=== PATIENT | female | born 1935 | race Two or more races ===

== ENCOUNTER 2021-07-02 11:04 | Inpatient (IN) | payer MEDICARE, MEDICAID ==
[~2021-07-02] VITALS: Ht 167.6 cm; Wt 71.5 kg
[2021-07-02] MEDS ORDERED: SODIUM CHLORIDE 0.9% 2,000 ML IV ONE (12:00)
[2021-07-02] MEDS: OXYGEN THERAPY IH SCH ×2 (12:51→19:52)
[2021-07-02 13:19] LABS: ABG A-A DIFF O2 571.1 mmHg (10-20.0); ABG CARBOXYHEMOGLOBIN 0.1 % (0.0-1.5); ABG HCO3 20.4 mmol/L (22.0-26.0); ABG METHEMOGLOBIN 0.3 % (0.0-1.5); ABG OXYGEN CONTENT 17.3 mL/dL (15.0-23.0); ABG OXYGEN SATURATION 96.1 % (95.0-98.0); ABG OXYHEMOGLOBIN 95.7 % (94.0-100.0); ABG PCO2 34 mmHg (35-45); ABG PH 7.375 (7.35-7.450); ABG TOTAL HEMOGLOBIN 12.8 G/dL (12.0-18.0); PO2, ARTERIAL BG 103.2 mmHg (71.0-79.0); SOURCE, BLOOD GAS ARTERIAL
[2021-07-02 13:20] LABS: O2 DEVICE,BLOOD GAS NON REBREATHER (ROOM AIR); SITE, BLOOD GAS LFT BRACHIAL
[2021-07-02 13:24] LABS: BASOPHILS % (AUTO) 0.9 % (0.0-2.0); EOSINOPHILS % (AUTO) 0 % (1.0-6.0); MEAN CORPUSCULAR HGB CONC 30.7 G/dL (31.0-37.0)
[2021-07-02 13:28] LABS: HEMATOCRIT 48.3 % (36-46); HEMOGLOBIN 14.8 g/dL (12.0-16.0); LYMPHOCYTES # (AUTO) 1.9 K/uL (1.0-4.8); LYMPHOCYTES % (AUTO) 7.7 % (22.0-44.0); MEAN CORPUSCULAR HEMOGLOBIN 29.2 pg (26.0-34.0); MEAN CORPUSCULAR VOLUME 95 fL (80-100); MONOCYTES # (AUTO) 1.5 K/uL (0.1-1.0); MONOCYTES % (AUTO) 5.8 % (2.0-9.0); NEUTROPHILS # (AUTO) 21.5 K/uL (1.8-7.7); PLATELET COUNT (AUTO) 319 K/uL (150-450); RED BLOOD CELL COUNT(AUTO) 5.08 MIL/uL (4.00-5.20); RED CELL DISTRIBUTION WIDTH 14.9 % (11.5-14.5)
[2021-07-02 13:29] LABS: NEUTROPHILS % (AUTO) 85.6 % (40.0-70.0)
[2021-07-02 13:37] LABS: COVID AG,FIA SOURCE NASOPHARYNGEAL
[2021-07-02 13:46] LABS: ALANINE AMINOTRANSFERASE 34 U/L (12-78); ALBUMIN 3.3 g/dL (3.4-5.0); ALKALINE PHOSPHATASE 77 U/L (46-116); ANION GAP 20 mmol/L (8-16); ASPARTATE AMINOTRANSFERASE 26 U/L (15-37); BILIRUBIN,TOTAL 0.6 mg/dL (0.1-1.0); CALCIUM, TOTAL 11.3 mg/dL (8.8-10.5); CARBON DIOXIDE 25 mmol/L (22-29); CHLORIDE 138 mmol/L (98-107); CREATINE KINASE, TOTAL ONLY 161 U/L (26-192); CREATININE 6.86 mg/dL (0.60-1.30); GLOMERULAR FILTR. RATE CALC 6 mL/min (>60); GLUCOSE,RANDOM 172 mg/dL (70-110); LIPASE 346 U/L (73-393); POTASSIUM 5.3 mmol/L (3.5-5.1)
[2021-07-02 13:51] LABS: SODIUM SERUM 183 mmol/L (136-145); UREA NITROGEN, BLOOD 213 mg/dL (7-18)
[2021-07-02] MEDS ORDERED: PIPERACILLIN/TAZO 3.375 GM/D5W 50 ML IV ONE (14:35)
[2021-07-02] MEDS ORDERED: 0.9% SODIUM CHLORIDE 10 ML SYRINGE IVP PRN (14:45)
[2021-07-02] MEDS ORDERED: ONDANSETRON HCL 4 MG/2 ML VIAL IVP PRN ×2 (14:45→21:00)
[2021-07-02] MEDS ORDERED: ACETAMINOPHEN 1000 MG/ISO-OSM 100 ML IV ONE (15:15)
[2021-07-02 15:16] LABS: APPEARANCE,URINE TURBID (CLEAR); BILIRUBIN,URINE NEGATIVE (NEGATIVE); GLUCOSE, URINE (UA) NEGATIVE (NEGATIVE); KETONES,URINE NEGATIVE (NEGATIVE); LEUKOCYTE ESTERASE ,URINE SMALL (NEGATIVE); NITRATE,URINE NEGATIVE (NEGATIVE); OCCULT BLOOD,URINE MODERATE (NEGATIVE); PROTEIN,URINE NEGATIVE (NEGATIVE); UROBILINOGEN,URINE 0.2 mg/dL (<=1.0)
[2021-07-02 15:34] LABS: AMORPHOUS SEDIMENT,UR Many /LPF (None Seen); BACTERIA,URINE Few /HPF (None Seen); RBC,URINE 0-2 /HPF (0-2); SQUAMOUS EPITHELIAL CELL,UR Few /LPF (None Seen)
[2021-07-02] MEDS ORDERED: LIDOCAINE 1% 10 ML VIAL SQ ONE (15:45)
[2021-07-02] MEDS ORDERED: CLINDAMYCIN 600 MG/D5% WATER 50 ML IV ONE (16:45)
[2021-07-02] MEDS ORDERED: DEXTROSE 5%-0.45% SODIUM CHL 1,000 ML IV ONE (16:45)
[2021-07-02 17:38] LABS: DIGOXIN < 0.20 ng/mL (0.90-2.00)
[2021-07-02 17:44] LABS: LACTIC ACID 2.4 mmol/L (0.4-2.0)
[2021-07-02] MEDS ORDERED: PHENYLEPHRINE 200 MG/D5%-WATER 250 ML IV PRN (17:45)
[2021-07-02 18:03] LABS: ABG METHEMOGLOBIN 0.3 % (0.0-1.5); SOURCE, BLOOD GAS ARTERIAL
[2021-07-02 19:17] LABS: ABG A-A DIFF O2 103.3 mmHg (10-20.0); ABG BASE EXCESS -10.2 mmol/L (-2.0-3.0); ABG CARBOXYHEMOGLOBIN 0.5 % (0.0-1.5); ABG OXYGEN CONTENT 15.1 mL/dL (15.0-23.0); ABG OXYGEN SATURATION 90.2 % (95.0-98.0); ABG OXYHEMOGLOBIN 89.5 % (94.0-100.0); ABG PCO2 32 mmHg (35-45); ABG PH 7.321 (7.35-7.450); PO2, ARTERIAL BG 59.9 mmHg (71.0-79.0); TEMPERATURE, FAHRENHEIT, BG 96.7 FAHREN (96.0-98.6)
[2021-07-02 19:19] LABS: O2 DEVICE,BLOOD GAS NASAL CANNULA (ROOM AIR); SITE, BLOOD GAS LFT BRACHIAL
[2021-07-02] MEDS ORDERED: VANCOMYCIN HCL 1 GM/D5% WATER 200 ML IV ONE (21:00)
[2021-07-02] MEDS ORDERED: ALBUTEROL SULFATE 2.5 MG/0.5 ML NEB SOLUTION NEB PRN (21:00)
[2021-07-02] MEDS ORDERED: ACETAMINOPHEN 325 MG TABLET PO PRN (21:00)
[2021-07-02] MEDS ORDERED: HYDROCODONE/ACETAMINOPHEN 5-325 MG TABLET PO PRN (21:00)
[2021-07-02] MEDS ORDERED: BISACODYL 10 MG RECTAL RECTAL SUPPOSITORY PR PRN (21:00)
[2021-07-02] MEDS ORDERED: MAGNESIUM HYDROXIDE SUSPENSION 30 ML UDCUP PO PRN (21:00)
[2021-07-02] MEDS ORDERED: IPRATROPIUM BROMIDE 0.5 MG/2.5 ML NEB SOLUTION NEB PRN (21:00)
[2021-07-02] MEDS ORDERED: ZOLPIDEM TARTRATE 5 MG TABLET PO PRN (21:00)
[2021-07-02] MEDS ORDERED: RINGERS SOLUTION,LACTATED 1,000 ML IV ONE (21:11)
[2021-07-02 21:27] LABS: BASOPHILS % (AUTO) 0.8 % (0.0-2.0); EOSINOPHILS % (AUTO) 0.1 % (1.0-6.0); HEMATOCRIT 36.2 % (36-46); HEMOGLOBIN 10.9 g/dL (12.0-16.0); LYMPHOCYTES # (AUTO) 2.2 K/uL (1.0-4.8); MEAN CORPUSCULAR HEMOGLOBIN 29.5 pg (26.0-34.0); MEAN CORPUSCULAR HGB CONC 30.2 G/dL (31.0-37.0); MEAN CORPUSCULAR VOLUME 98 fL (80-100); MONOCYTES % (AUTO) 4.9 % (2.0-9.0); NEUTROPHILS # (AUTO) 16.6 K/uL (1.8-7.7); NEUTROPHILS % (AUTO) 83.2 % (40.0-70.0); PLATELET COUNT (AUTO) 219 K/uL (150-450); RED BLOOD CELL COUNT(AUTO) 3.71 MIL/uL (4.00-5.20)
[2021-07-02] MEDS ORDERED: VANCOMYCIN HCL 1.25 GM in DEXTROSE 5%-WATER 250 ML IV ONE (22:00)
[2021-07-02] MEDS ORDERED: PANTOPRAZOLE SODIUM 40 MG/VIAL IVP ONE (22:00)
[2021-07-02] MEDS ORDERED: VANCOMYCIN HCL 1 GM/D5% WATER 200 ML IV PRN (22:00)
[2021-07-02 22:01] LABS: BILIRUBIN,TOTAL 0.6 mg/dL (0.1-1.0); CALCIUM, TOTAL 8.2 mg/dL (8.8-10.5); CREATININE 5.42 mg/dL (0.60-1.30); POTASSIUM 3.7 mmol/L (3.5-5.1); THYROID STIMULATING HORMONE 1.62 uIU/mL (0.36-3.74); TOTAL PROTEIN, SERUM 5.9 g/dL (6.4-8.2)
[2021-07-02] MEDS: PANTOPRAZOLE SODIUM 80 MG in SODIUM CHLORIDE 0.9% 100 ML IV SCH (22:14)
[2021-07-03] MEDS: PIPERACILLIN SODIUM/TAZOBACTAM 2.25 GM in DEXTROSE 5%-WATER 50 ML IV SCH ×3 (04:10→19:43)
[2021-07-03 04:24] LABS: ALBUMIN 2.1 g/dL (3.4-5.0); BILIRUBIN,TOTAL 0.6 mg/dL (0.1-1.0); CALCIUM, TOTAL 8.1 mg/dL (8.8-10.5); CREATININE 5.22 mg/dL (0.60-1.30); POTASSIUM 3.3 mmol/L (3.5-5.1); TOTAL PROTEIN, SERUM 6.2 g/dL (6.4-8.2)
[2021-07-03] MEDS: PANTOPRAZOLE SODIUM 80 MG in SODIUM CHLORIDE 0.9% 100 ML IV SCH ×2 (06:48→16:10)
[2021-07-03 06:52] LABS: BASOPHILS % (AUTO) 0.4 % (0.0-2.0); EOSINOPHILS % (AUTO) 0.1 % (1.0-6.0); HEMATOCRIT 36.3 % (36-46); HEMOGLOBIN 11.1 g/dL (12.0-16.0); LYMPHOCYTES # (AUTO) 1.4 K/uL (1.0-4.8); LYMPHOCYTES % (AUTO) 6.4 % (22.0-44.0); MEAN CORPUSCULAR HEMOGLOBIN 29.2 pg (26.0-34.0); MEAN CORPUSCULAR HGB CONC 30.5 G/dL (31.0-37.0); MEAN CORPUSCULAR VOLUME 96 fL (80-100); MONOCYTES # (AUTO) 1.1 K/uL (0.1-1.0); MONOCYTES % (AUTO) 5.1 % (2.0-9.0); NEUTROPHILS # (AUTO) 19.5 K/uL (1.8-7.7); PLATELET COUNT (AUTO) 234 K/uL (150-450); RED BLOOD CELL COUNT(AUTO) 3.79 MIL/uL (4.00-5.20); RED CELL DISTRIBUTION WIDTH 15.1 % (11.5-14.5)
[2021-07-03 07:04] LABS: ALBUMIN 2.2 g/dL (3.4-5.0); BILIRUBIN,TOTAL 0.7 mg/dL (0.1-1.0); CREATININE 4.95 mg/dL (0.60-1.30); TOTAL PROTEIN, SERUM 6.1 g/dL (6.4-8.2)
[2021-07-03] MEDS: DEXTROSE 5%-WATER 1,000 ML IV SCH (08:48)
[2021-07-03] MEDS ORDERED: PROPOFOL 1% 20 ML VIAL IVP ONE (12:00)
[2021-07-03 13:10] LABS: HEMATOCRIT 41.4 % (36-46); HEMOGLOBIN 12.5 g/dL (12.0-16.0)
[2021-07-03] MEDS ORDERED: *CLINICAL-CEFEPIME DOSING CLINICAL ONE (13:30)
[2021-07-03] MEDS ORDERED: CEFEPIME HCL 1 GM in DEXTROSE 5%-WATER 50 ML IV ONE (14:00)
[2021-07-03 17:03] LABS: CALCIUM, TOTAL 8.4 mg/dL (8.8-10.5); CREATININE 4.71 mg/dL (0.60-1.30); MAGNESIUM 2.7 mg/dL (1.80-2.40); PHOSPHORUS 3.8 mg/dL (2.5-4.9); POTASSIUM 3.1 mmol/L (3.5-5.1)
[2021-07-03 18:58] LABS: HEMATOCRIT 36.6 % (36-46); HEMOGLOBIN 11.2 g/dL (12.0-16.0)
[2021-07-03] MEDS: MORPHINE SULFATE 2 MG/ML SYRINGE IVP PRN (21:47)
[2021-07-04 01:23] LABS: HEMATOCRIT 35.2 % (36-46); HEMOGLOBIN 10.8 g/dL (12.0-16.0)
[2021-07-04] MEDS: PANTOPRAZOLE SODIUM 80 MG in SODIUM CHLORIDE 0.9% 100 ML IV SCH ×3 (02:20→22:59)
[2021-07-04] MEDS: MORPHINE SULFATE 2 MG/ML SYRINGE IVP PRN ×2 (02:31→05:55)
[2021-07-04] MEDS: PIPERACILLIN SODIUM/TAZOBACTAM 2.25 GM in DEXTROSE 5%-WATER 50 ML IV SCH ×3 (03:12→21:31)
[2021-07-04] MEDS: DEXTROSE 5%-WATER 1,000 ML IV SCH ×2 (04:26→20:42)
[2021-07-04 07:36] LABS: HEMATOCRIT 30.7 % (36-46); HEMOGLOBIN 9.7 g/dL (12.0-16.0); MEAN CORPUSCULAR HEMOGLOBIN 29.8 pg (26.0-34.0); MEAN CORPUSCULAR HGB CONC 31.4 G/dL (31.0-37.0); MEAN CORPUSCULAR VOLUME 95 fL (80-100); PLATELET COUNT (AUTO) 135 K/uL (150-450); RED BLOOD CELL COUNT(AUTO) 3.24 MIL/uL (4.00-5.20)
[2021-07-04 07:49] LABS: ALBUMIN 1.8 g/dL (3.4-5.0); BILIRUBIN,TOTAL 0.6 mg/dL (0.1-1.0); CALCIUM, TOTAL 8.2 mg/dL (8.8-10.5); CREATININE 4.57 mg/dL (0.60-1.30); TOTAL PROTEIN, SERUM 6.1 g/dL (6.4-8.2); VANCOMYCIN,RANDOM 11.8 mcg/mL (25.0-50.0)
[2021-07-04 08:11] LABS: POTASSIUM 2.8 mmol/L (3.5-5.1)
[2021-07-04 08:58] LABS: BAND NEUTROPHILS % (MANUAL) 8 % (0-5); LYMPHOCYTES % (MANUAL) 12 % (22-44); MONOCYTES % (MANUAL) 2 % (2-9); SEGMENTED NEUTROPHILS % 78 % (40-70)
[2021-07-04] MEDS ORDERED: VANCOMYCIN HCL 500 MG in DEXTROSE 5%-WATER 100 ML IV ONE (09:00)
[2021-07-04] MEDS: POTASSIUM CHL 10 MEQ/WATER 50 ML IV SCH ×4 (10:29→13:25)
[2021-07-04 11:24] LABS: ABG A-A DIFF O2 146.9 mmHg (10-20.0); ABG BASE EXCESS -4.3 mmol/L (-2.0-3.0); ABG CARBOXYHEMOGLOBIN 0.3 % (0.0-1.5); ABG HCO3 21.6 mmol/L (22.0-26.0); ABG METHEMOGLOBIN 0.3 % (0.0-1.5); ABG OXYGEN CONTENT 13.3 mL/dL (15.0-23.0); ABG OXYGEN SATURATION 97.7 % (95.0-98.0); ABG OXYHEMOGLOBIN 97.1 % (94.0-100.0); ABG PCO2 28 mmHg (35-45); ABG PH 7.458 (7.35-7.450); ABG TOTAL HEMOGLOBIN 9.6 G/dL (12.0-18.0); SOURCE, BLOOD GAS ARTERIAL; TEMPERATURE, FAHRENHEIT, BG 98.2 FAHREN (96.0-98.6)
[2021-07-04 11:33] LABS: SITE, BLOOD GAS RT BRACHIAL
[2021-07-04 11:34] LABS: O2 DEVICE,BLOOD GAS CANNULA (ROOM AIR)
[2021-07-04 13:10] LABS: HEMATOCRIT 29.2 % (36-46); HEMOGLOBIN 9.1 g/dL (12.0-16.0)
[2021-07-04] MEDS: CEFEPIME HCL 0.5 GM in DEXTROSE 5%-WATER 50 ML IV SCH (13:26)
[2021-07-04 19:08] LABS: HEMATOCRIT 34.2 % (36-46); HEMOGLOBIN 10.4 g/dL (12.0-16.0)
[2021-07-04 19:38] LABS: ABG A-A DIFF O2 123.4 mmHg (10-20.0); ABG BASE EXCESS -5.3 mmol/L (-2.0-3.0); ABG CARBOXYHEMOGLOBIN 0.3 % (0.0-1.5); ABG HCO3 20.9 mmol/L (22.0-26.0); ABG METHEMOGLOBIN 0.1 % (0.0-1.5); ABG OXYGEN CONTENT 13.2 mL/dL (15.0-23.0); ABG OXYGEN SATURATION 98.3 % (95.0-98.0); ABG OXYHEMOGLOBIN 97.9 % (94.0-100.0); ABG PCO2 25 mmHg (35-45); ABG PH 7.484 (7.35-7.450); ABG TOTAL HEMOGLOBIN 9.3 G/dL (12.0-18.0); PO2, ARTERIAL BG 162.1 mmHg (71.0-79.0); SOURCE, BLOOD GAS ARTERIAL; TEMPERATURE, FAHRENHEIT, BG 98.4 FAHREN (96.0-98.6)
[2021-07-04 19:40] LABS: O2 DEVICE,BLOOD GAS CANNULA (ROOM AIR); SITE, BLOOD GAS LFT RADIAL
[2021-07-04 20:53] VITALS: BP 111/46
[2021-07-05 01:16] LABS: HEMOGLOBIN 8.8 g/dL (12.0-16.0)
[2021-07-05] MEDS: PIPERACILLIN SODIUM/TAZOBACTAM 2.25 GM in DEXTROSE 5%-WATER 50 ML IV SCH ×3 (03:03→20:55)
[2021-07-05 05:12] LABS: BASOPHILS % (AUTO) 0.3 % (0.0-2.0); EOSINOPHILS % (AUTO) 1.8 % (1.0-6.0); HEMATOCRIT 31.2 % (36-46); HEMOGLOBIN 9.7 g/dL (12.0-16.0); LYMPHOCYTES # (AUTO) 0.7 K/uL (1.0-4.8); LYMPHOCYTES % (AUTO) 6.4 % (22.0-44.0); MEAN CORPUSCULAR HEMOGLOBIN 29.5 pg (26.0-34.0); MEAN CORPUSCULAR HGB CONC 31.1 G/dL (31.0-37.0); MEAN CORPUSCULAR VOLUME 95 fL (80-100); MONOCYTES # (AUTO) 0.5 K/uL (0.1-1.0); MONOCYTES % (AUTO) 4.8 % (2.0-9.0); NEUTROPHILS # (AUTO) 9.6 K/uL (1.8-7.7); PLATELET COUNT (AUTO) 128 K/uL (150-450); RED BLOOD CELL COUNT(AUTO) 3.29 MIL/uL (4.00-5.20)
[2021-07-05 05:18] LABS: NEUTROPHILS % (AUTO) 86.7 % (40.0-70.0)
[2021-07-05 05:27] LABS: ALBUMIN 1.7 g/dL (3.4-5.0); BILIRUBIN,TOTAL 0.6 mg/dL (0.1-1.0); CALCIUM, TOTAL 7.9 mg/dL (8.8-10.5); CREATININE 3.67 mg/dL (0.60-1.30); POTASSIUM 3.1 mmol/L (3.5-5.1); TOTAL PROTEIN, SERUM 5.7 g/dL (6.4-8.2)
[2021-07-05 08:00] VITALS: BP 96/41
[2021-07-05] MEDS: PANTOPRAZOLE SODIUM 80 MG in SODIUM CHLORIDE 0.9% 100 ML IV SCH ×2 (08:39→18:34)
[2021-07-05] MEDS: DEXTROSE 5%-WATER 1,000 ML IV SCH ×2 (11:50→20:27)
[2021-07-05 12:00] VITALS: BP 116/45
[2021-07-05] MEDS ORDERED: SODIUM CHLORIDE 0.9% 250 ML IV ONE (12:02)
[2021-07-05] MEDS: POTASSIUM CHL 10 MEQ/WATER 50 ML IV SCH ×3 (12:05→15:56)
[2021-07-05] MEDS: CEFEPIME HCL 0.5 GM in DEXTROSE 5%-WATER 50 ML IV SCH (14:03)
[2021-07-05] MEDS ORDERED: SODIUM CHLORIDE 0.9% 1,000 ML ONE (15:29)
[2021-07-05 16:30] VITALS: BP 128/57
[2021-07-05 17:40] LABS: HEMATOCRIT 30.2 % (36-46); HEMOGLOBIN 9.5 g/dL (12.0-16.0)
[2021-07-05 19:57] VITALS: BP 92/54
[2021-07-05 23:58] VITALS: BP 115/41
[2021-07-06] MEDS: PIPERACILLIN SODIUM/TAZOBACTAM 2.25 GM in DEXTROSE 5%-WATER 50 ML IV SCH ×2 (04:24→12:05)
[2021-07-06] MEDS: PANTOPRAZOLE SODIUM 80 MG in SODIUM CHLORIDE 0.9% 100 ML IV SCH ×2 (04:34→12:36)
[2021-07-06 05:00] VITALS: BP 97/41
[2021-07-06] MEDS: DEXTROSE 5%-WATER 1,000 ML IV SCH (07:05)
[2021-07-06 08:16] VITALS: BP 121/64
[2021-07-06 10:47] LABS: BASOPHILS % (AUTO) 0.2 % (0.0-2.0); EOSINOPHILS % (AUTO) 2.8 % (1.0-6.0); HEMATOCRIT 23.2 % (36-46); HEMOGLOBIN 7.4 g/dL (12.0-16.0); LYMPHOCYTES # (AUTO) 0.6 K/uL (1.0-4.8); LYMPHOCYTES % (AUTO) 5.8 % (22.0-44.0); MEAN CORPUSCULAR HGB CONC 31.9 G/dL (31.0-37.0); MEAN CORPUSCULAR VOLUME 94 fL (80-100); MONOCYTES # (AUTO) 0.4 K/uL (0.1-1.0); MONOCYTES % (AUTO) 4.2 % (2.0-9.0); NEUTROPHILS # (AUTO) 8.7 K/uL (1.8-7.7); PLATELET COUNT (AUTO) 145 K/uL (150-450); RED BLOOD CELL COUNT(AUTO) 2.47 MIL/uL (4.00-5.20)
[2021-07-06 11:01] LABS: ALBUMIN 1.5 g/dL (3.4-5.0); BILIRUBIN,TOTAL 0.7 mg/dL (0.1-1.0); CALCIUM, TOTAL 7.6 mg/dL (8.8-10.5); CREATININE 2.94 mg/dL (0.60-1.30); TOTAL PROTEIN, SERUM 5.6 g/dL (6.4-8.2); VANCOMYCIN,RANDOM 9.7 mcg/mL (25.0-50.0)
[2021-07-06 11:10] LABS: POTASSIUM 2.8 mmol/L (3.5-5.1)
[2021-07-06] MEDS ORDERED: POTASSIUM CHLORIDE 20 MEQ in DEXTROSE 5%-WATER 1,000 ML IV SCH (11:24)
[2021-07-06 11:50] LABS: COVID AG,FIA SOURCE NASAL SWAB
[2021-07-06] MEDS: POTASSIUM CHL 10 MEQ/WATER 50 ML IV SCH ×4 (12:36→16:06)
[2021-07-06] MEDS ORDERED: VANCOMYCIN HCL 750 MG in DEXTROSE 5%-WATER 250 ML IV ONE (13:00)
[2021-07-06] MEDS: CEFEPIME HCL 0.5 GM in DEXTROSE 5%-WATER 50 ML IV SCH (14:06)
[2021-07-06] MEDS ORDERED: ACET-2247 PO (14:29)
[2021-07-06] MEDS ORDERED: AUD NEB (14:30)
[2021-07-06] MEDS ORDERED: BISA10SU11 PR (14:31)
[2021-07-06] MEDS ORDERED: HYDR-4723 PO (14:32)
[2021-07-06] MEDS ORDERED: IPRNEB IH (14:34)
[2021-07-06] MEDS ORDERED: MOM30 PO (14:34)
[2021-07-06] MEDS ORDERED: ZOLP-280 PO (14:36)
[2021-07-06 15:34] VITALS: BP 104/49
== END 2021-07-06 18:30 | disposition hospice, home (50) | DRG 871 ==
LOC: EMS 11:16 → ICUN 21:07 → UNDOADMIN 07-03 10:20 → ICUN 07-04 17:56 → ICU 07-04 17:56 → 6N 07-05 15:20 → ICU 07-05 15:20 → UNDODISIN 07-06 18:30
PROVIDERS: ADMIT Hospitalist; ATTEND Hospitalist
PROC: 0DJD8ZZ Inspection of Lower Intestinal Tract, Via Natural or Artificial Opening Endoscopic (ICD-10-PCS; 2021-07-02)
PROC: 0DJ08ZZ Inspection of Upper Intestinal Tract, Via Natural or Artificial Opening Endoscopic (ICD-10-PCS; principal; 2021-07-02 22:15)
PROC: 0W9B30Z Drainage of Left Pleural Cavity with Drainage Device, Percutaneous Approach (ICD-10-PCS; 2021-07-03)
DX: A41.9 Sepsis, unspecified organism (principal); K29.71 Gastritis, unspecified, with bleeding; J69.0 Pneumonitis due to inhalation of food and vomit; E44.0 Moderate protein-calorie malnutrition; E87.0 Hyperosmolality and hypernatremia; E87.4 Mixed disorder of acid-base balance; I13.0 Hypertensive heart and chronic kidney disease with heart failure and stage 1 through stage 4 chronic kidney disease, or unspecified chronic kidney disease; J94.2 Hemothorax; N17.9 Acute kidney failure, unspecified; N39.0 Urinary tract infection, site not specified; J93.9 Pneumothorax, unspecified; J44.0 Chronic obstructive pulmonary disease with (acute) lower respiratory infection; Z51.5 Encounter for palliative care; E03.9 Hypothyroidism, unspecified; E86.0 Dehydration; E87.5 Hyperkalemia; E87.6 Hypokalemia; F02.80 Dementia in other diseases classified elsewhere, unspecified severity, without behavioral disturbance, psychotic disturbance, mood disturbance, and anxiety; I48.0 Paroxysmal atrial fibrillation; Z20.822 Contact with and (suspected) exposure to COVID-19; I50.9 Heart failure, unspecified; R65.20 Severe sepsis without septic shock; G30.9 Alzheimer's disease, unspecified; N18.9 Chronic kidney disease, unspecified; Z82.0 Family history of epilepsy and other diseases of the nervous system; Z79.899 Other long term (current) drug therapy; Z88.8 Allergy status to other drugs, medicaments and biological substances; Z68.25 Body mass index [BMI] 25.0-25.9, adult
CPT/HCPCS: 36556; 36600; 51702; 70450; 71045; 71250; 80048; 80053; 80162; 80202; 81001; 82550; 82805; 83605; 83690; 83735; 84100; 84132; 84145; 84443; 84484; 85014; 85018; 85025; 86850; 86900; 86901; 87040; 87081; 87086; 87205; 93005; 93306; 99291; 99292; C9113; G0378; G0480; J0131; J0692; J2270; J2370; J2405; J2543; J2704; J3370; J3480; J3490; J7030; J7050; J7060; J7120; 36415-L1; 36415-TC